=== PATIENT | female | born 1995 | race American Indian/Alaskan Native ===

== ENCOUNTER 2022-02-08 11:12 | Emergency (ER) | payer MEDICAID, OTHER ==
[2022-02-08] MEDS ORDERED: ASPIRIN 81 MG TAB CHEW PO ONE (11:56)
--- NOTE | 2022-02-08 12:55 | XRay Report ---
CHEST 2 VIEWS INDICATION / CLINICAL INFORMATION: chest pain, dyspnea. COMPARISON: None available. FINDINGS: SUPPORT DEVICES: None. HEART / MEDIASTINUM: No significant abnormality. LUNGS / PLEURA: No significant pulmonary or pleural abnormality. No pneumothorax. ADDITIONAL FINDINGS: No significant additional findings. IMPRESSION: 1. No acute findings. Signer Name: Ayad Ramírez Jr, MD Signed: 02/08/2022 12:50 PM Workstation Name: [id number]
[2022-02-08 13:39] LABS: Basophils % (Auto) 0.4 % (0.0-1.8); Eosinophils % (Auto) 0.6 % (0.0-4.3); Hematocrit 37.4 % (30.3-42.9); Hemoglobin 12.6 gm/dl (10.1-14.3); Lymphocytes # (Auto) 0.9 K/mm3 (1.2-5.4); Lymphocytes % (Auto) 12.4 % (13.4-35.0); Mean Corpuscular HGB Conc 34 % (30-34); Mean Corpuscular Volume 91 fl (79-97); Monocytes # (Auto) 0.4 K/mm3 (0.0-0.8); Monocytes % (Auto) 4.8 % (0.0-7.3); Platelet Count 268 K/mm3 (140-440); Red Blood Count 4.09 M/mm3 (3.65-5.03)
[2022-02-08 14:01] LABS: Alanine Aminotransferase 40 units/L (7-56); Albumin 3.7 g/dL (3.9-5); Blood Urea Nitrogen 12 mg/dL (7-17); Calcium 8.6 mg/dL (8.4-10.2); Hemolysis Index 8
[2022-02-08 14:13] LABS: BUN/Creatinine Ratio 17
--- NOTE | 2022-02-08 15:10 | Emergency Department Report ---
ED Chest Pain HPI - General Chief Complaint: Chest Pain Stated Complaint: CHEST PAIN/ L ARM NUMBNESS Source: patient Mode of arrival: Ambulatory Limitations: No Limitations - History of Present Illness Initial Comments: Patient is a 26-year-old -[place] female with with a history of seizures, migraine headaches and hypertension who presents to the ED with complaint of acute onset persistent anterior chest pain which she describes as pressure-like tightness with the shortness of breath for the last 3 days. Patient states that the pain appears to be radiating to the left arm with tingling sensation in her fingers. Patient denies dizziness, syncope, neck pain, fall, heavy lifting, headache, nausea and vomiting, diaphoresis, palpitations, abdominal pain, back pain, bilateral upper or lower extremity weakness, change in vision, fever and chills or cough. MD Complaint: chest pain (Substernal chest pain), other (Shortness of breath) -: days(s) (3) Onset: during rest, awoke with symptoms Pain Location: substernal Pain Radiation: LUE Severity: severe Severity scale (0 -10): 7 Quality: tightness, aching, pressure Consistency: constant Improves With: nothing Worsens With: nothing re: dyspnea. denies: nausea, vomting, diaphoresis, sense of impending doom Other Symptoms: denies: cough, fever, syncope, rash, acid taste in mouth, leg swelling, palpitations, other Treatments Prior to Arrival: none Aspirin use within the Past 7 Days: (0) No - Related Data On Oral Contraceptives: Yes Home Medications Medication Instructions Recorded Confirmed Last Taken Norgestrel-Ethinyl Estradiol 1 each PO DAILY 08/31/15 02/02/16 Unknown [Cryselle-28 Tablet] Norethindrone Acetate [Aygestin] 5 mg PO DAILY 12/24/15 02/02/16 Unknown labetaloL [Normodyne TAB] 100 mg PO DAILY 12/24/15 02/02/16 Unknown Previous Rx's Medication Instructions Recorded Last Taken Type Famotidine [Pepcid] 20 mg PO BID #60 tablet 02/08/22 Unknown Rx Naproxen 500 mg PO Q12H PRN #24 02/08/22 Unknown Rx Allergies Allergy/AdvReac Type Severity Reaction Status Date / Time Penicillins Allergy Shortness Verified 02/08/22 11:17 of Breath morphine AdvReac Angioedema Verified 02/08/22 11:17 iv dye Allergy Hives Uncoded 02/08/22 11:17 Heart Score - HEART Score History: Slightly suspicious EKG: Normal Age: < 45 Risk factors: No known risk factors Troponin: < normal limit HEART Score: 0 - EKG Read Time Time EKG Completed: 11:36 EKG Read Time: 11:40 - Critical Actions Critical Actions: 0-3 pts:0.9-1.7%risk of adverse cardiac event.Candidate for discharge ED Review of Systems ROS: Stated complaint: CHEST PAIN/ L ARM NUMBNESS Other details as noted in HPI Constitutional: denies: chills, fever Eyes: denies: eye pain, eye discharge, vision change ENT: denies: ear pain, throat pain Respiratory: shortness of breath. denies: cough, wheezing Cardiovascular: chest pain (Substernal chest pain). denies: palpitations Endocrine: no symptoms reported Gastrointestinal: denies: abdominal pain, nausea, vomiting, diarrhea Genitourinary: denies: urgency, dysuria, discharge Musculoskeletal: denies: back pain, joint swelling, arthralgia Skin: denies: rash, lesions Neurological: denies: headache, weakness, paresthesias Psychiatric: denies: anxiety, depression Hematological/Lymphatic: denies: easy bleeding, easy bruising ED Past Medical Hx - Past Medical History Previous Medical History?: Yes Hx Hypertension: Yes (since 2013) Hx Headaches / Migraines: Yes (migraines) Hx Seizures: Yes (as a child) - Surgical History Past Surgical History?: Yes Hx Cholecystectomy: Yes - Social History Smoking Status: Never Smoker - Medications Home Medications: Home Medications Medication Instructions Recorded Confirmed Last Taken Type Norgestrel-Ethinyl Estradiol 1 each PO DAILY 08/31/15 02/02/16 Unknown History [Cryselle-28 Tablet] Norethindrone Acetate [Aygestin] 5 mg PO DAILY 12/24/15 02/02/16 Unknown History labetaloL [Normodyne TAB] 100 mg PO DAILY 12/24/15 02/02/16 Unknown History Famotidine [Pepcid] 20 mg PO BID #60 tablet 02/08/22 Unknown Rx Naproxen 500 mg PO Q12H PRN #24 02/08/22 Unknown Rx ED Physical Exam - General Limitations: No Limitations General appearance: alert, in no apparent distress - Head Head exam: Present: atraumatic, normocephalic, normal inspection - Eye Eye exam: Present: normal appearance, PERRL, EOMI Pupils: Present: normal accommodation - ENT ENT exam: Present: normal exam, normal orophraynx, mucous membranes moist, TM's normal bilaterally, normal external ear exam - Neck Neck exam: Present: normal inspection, full ROM. Absent: tenderness - Respiratory Respiratory exam: Present: normal lung sounds bilaterally, chest wall tenderness (Palpable reproducible anterior chest wall tenderness). Absent: respiratory distress, wheezes, rales, rhonchi, accessory muscle use, decreased breath sounds, prolonged expiratory - Cardiovascular Cardiovascular Exam: Present: regular rate, normal rhythm, normal heart sounds. Absent: systolic murmur, diastolic murmur, rubs, gallop - GI/Abdominal GI/Abdominal exam: Present: soft, normal bowel sounds. Absent: tenderness, guarding, rebound, hyperactive bowel sounds, hypoactive bowel sounds, organomegaly - Extremities Exam Extremities exam: Present: normal inspection, full ROM, normal capillary refill - Back Exam Back exam: Present: normal inspection, full ROM. Absent: tenderness, CVA tenderness (R), CVA tenderness (L), muscle spasm, paraspinal tenderness, v ertebral tenderness - Neurological Exam Neurological exam: Present: alert, oriented X3, CN II-XII intact, normal gait, reflexes normal - Psychiatric Psychiatric exam: Present: normal affect, normal mood, anxious - Skin Skin exam: Present: warm, dry, intact, normal color. Absent: rash ED Course Vital Signs 02/08/22 11:27 Temperature 98.5 F Pulse Rate 80 Respiratory 16 Rate Blood Pressure 168/116 [Right] O2 Sat by Pulse 100 Oximetry MARTINEZ score - Martinez Score Age > 65: (0) No Aspirin use within the Past 7 Days: (0) No 3 or more CAD Risk Factors: (0) No 2 or more Angina events in past 24 hrs: (0) No Known CAD with more than 50% Stenosis: (0) No Elevated Cardiac Markers: (0) No ST Deviation Greater than 0.5mm: (0) No MARTINEZ Score: 0 ED Medical Decision Making - Lab Data Result diagrams: 02/08/22 13:10 02/08/22 13:10 - EKG Data EKG shows normal: sinus rhythm Rate: normal - EKG Data Interpretation: normal EKG 02/08/22 15:15 EKG showed normal sinus rhythm with a ventricular rate of [address] or T wave abnormalities. - Radiology Data Radiology results: report reviewed, image reviewed [facility] [address] [place] [address] XRay Report Signed Patient: CARLOS EDUARDO CUMMINGS MR#: [id number] : 1995 Acct:[id number] Age/Sex: 26 / F ADM Date: 02/08/22 Loc: ED Attending Dr: Ordering Physician: ENMA JO Date of Service: 02/08/22 Procedure(s): XR chest routine 2V Accession Number(s): [id number] cc: ENMA JO Fluoro Time In Minutes: CHEST 2 VIEWS INDICATION / CLINICAL INFORMATION: chest pain, dyspnea. COMPARISON: None available. FINDINGS: SUPPORT DEVICES: None. HEART / MEDIASTINUM: No significant abnormality. LUNGS / PLEURA: No significant pulmonary or pleural abnormality. No pneumothorax. ADDITIONAL FINDINGS: No significant additional findings. IMPRESSION: 1. No acute findings. Signer Name: Ayad Haskins Jr, MD Signed: 02/08/2022 12:50 PM Workstation Name: [id number] Transcribed By: TTR Dictated By: AYAD HASKINS JR, MD Electronically Authenticated By: AYAD HASKINS JR, MD Signed Date/Time: 02/08/22 1250 DD/ 1250 TD/TT: - Medical Decision Making This is a 26-year-old -[place] female with with a history of seizures, migraine headaches and hypertension who presents to the ED with complaint of a cute onset persistent anterior chest pain which she describes as pressure-like tightness with the shortness of breath for the last 3 days. Patient states that the pain appears to be radiating to the left arm with tingling sensation in her fingers. In the ED, patient is alert and oriented x3 and is not in any distress. Patient was treated in the ED with aspirin. Lab test results were reviewed and are all nonactionable. Chest x-ray showed no acute cardiopulmonary abnormalities or pneumonitis. Patient's heart score is 0 and patient is PERC negative per Wells criteria. Physical exam showed palpable reproducible anterior chest wall tenderness consistent with costochondritis. Patient was d ischarged home on medications for pain and advised to follow-up with her primary care physician in 3 to 5 days for reevaluation or return to the ED immediately if symptoms get worse. - Differential Diagnosis ACS; PE; pneumonia; costochondritis; GERD; Critical care attestation.: If time is entered above; I have spent that time in minutes in the direct care of this critically ill patient, excluding procedure time. ED Disposition Clinical Impression: Acute nonspecific chest pain with low risk of coronary artery disease, Acute costochondritis, Muscle strain of anterior chest wall Disposition: HOME / SELF CARE / HOMELESS Is pt being admited?: No Does the pt Need Aspirin: No Condition: Stable Instructions: Chest Pain (ED), Costochondritis, [id number], Nonspecific Chest Pain, Adult, [id number], Chest Wall Pain, [id number], Muscle Strain, [id number] Additional Instructions: All lab test results were reviewed and are all nonactionable. EKG showed normal sinus rhythm with a ventricular rate of [address] or T wave abnormalities. Chest x-ray showed no acute cardiopulmonary abnormalities or pneumonitis. Therefore take medication with food, drink plenty of fluids and follow-up with your primary care physician in 7 to 10 days for reevaluation. Return to the ED immediately if symptoms get worse. Prescriptions: Naproxen 500 mg PO Q12H PRN #24 PRN Reason: Pain , Severe (7-10) Famotidine [Pepcid] 20 mg PO BID #60 tablet Referrals: [facility] [Provider Group] - 3-5 Days Forms: Work/School Release Form(ED) Time of Disposition: 15:13 Print Language: SETSWANA
[2022-02-08 16:51] VITALS: BP 189/95
--- NOTE | 2022-02-10 17:16 | Electrocardiograph Report ---
[facility] Test Date: 2022-02-08 Test Time: 11:36:52 Pat Name: CARLOS EDUARDO CUMMINGS Department: Room: Gender: F Process Safety Specialist: NURSE : 1995 Requested By: JULEE PEREZ Order Number: [id number] Reading MD: Latonia Severino Measurements Intervals [place] Rate: 80 P: 37 MI: 132 QRS: 10 QRSD: 92 T: 12 QT: 403 QTc: 463 Interpretive Statements Sinus rhythm No previous ECG available for comparison Electronically Signed On 02-10-2022 17:15:43 EDT by Latonia Severino
== END 2022-02-08 17:05 | disposition home or self-care (01) ==
LOC: ED 11:12
DX: S29.011A Strain of muscle and tendon of front wall of thorax, initial encounter (principal); M94.0 Chondrocostal junction syndrome [Tietze]; I10 Essential (primary) hypertension; G43.909 Migraine, unspecified, not intractable, without status migrainosus; Z88.0 Allergy status to penicillin; Z88.5 Allergy status to narcotic agent; Z91.041 Radiographic dye allergy status; Z79.899 Other long term (current) drug therapy; X58.XXXA Exposure to other specified factors, initial encounter; Y93.89 Activity, other specified; Y92.89 Other specified places as the place of occurrence of the external cause; Y99.8 Other external cause status
CPT/HCPCS: 36415; 71046; 80053; 83880; 84484; 85025; 93005; 99283